=== PATIENT | female | born 1965 | race Caucasian/White ===

== ENCOUNTER 2022-12-13 14:05 | Observation (INO) | payer MEDICAID, SELFPAY ==
[2022-12-13] VITALS (14 sets, daily range): BP systolic 78–112; BP diastolic 44–87; PULSE 80–101; RESP 16–27; TEMP 36.6–37; O2SAT 89–96; BMI 31.4
--- NOTE | 2022-12-13 14:14 | ECG_ITS ---
APPROVED REPORT Exam: Resting ECG HR:99 bpm ECG Measurements Heart Rate 99 AXES NJ 127 P 59 QRSd 93 QRS 9 QT 339 T 57 QTc 396 Conclusion SINUS RHYTHM NORMAL ECG UNCONFIRMED REPORT Electronically signed by : Jeremiah Chin MD 12/13/2022 20:17:25
--- NOTE | 2022-12-13 14:42 | CT_ITS ---
PROCEDURE INFORMATION: Exam: CT Thoracic Spine Without Contrast Exam date and time: 12/13/2022 4:06 PM Age: 57 years old Clinical indication: Pain in thoracic spine; Additional info: Syncope, fall, hit head, neck/back pain TECHNIQUE: Imaging protocol: Computed tomography of the thoracic spine without contrast. Radiation optimization: All CT scans at this facility use at least one of these dose optimization techniques: automated exposure control; mA and/or kV adjustment per patient size (includes targeted exams where dose is matched to clinical indication); or iterative reconstruction. REPORTING DATA: Count of CT and Cardiac NM exams in prior 12 months: This patient has received 0 known CTs and 0 known cardiac nuclear medicine studies in the 12 months prior to the current study. COMPARISON: CT CERVICAL SPINE WO CON 12/13/2022 4:04 PM FINDINGS: Bones/joints: Thoracic spondylosis Soft tissues: Unremarkable. Lungs: Incomplete visualization of changes of centrilobular emphysema. IMPRESSION: No evidence of acute osseous injury.
--- NOTE | 2022-12-13 14:42 | CT_ITS ---
PROCEDURE INFORMATION: Exam: CTA Abdomen and Pelvis With Contrast Exam date and time: 12/13/2022 4:21 PM Age: 57 years old Clinical indication: Other: Severe pain; Additional info: Severe pain, black stools TECHNIQUE: Imaging protocol: Computed tomographic angiography of the abdomen and pelvis with contrast. Exam focused on the arteries. 3D rendering (Not supervised by radiologist): MIP and/or 3D reconstructed images were created by the technologist. Radiation optimization: All CT scans at this facility use at least one of these dose optimization techniques: automated exposure control; mA and/or kV adjustment per patient size (includes targeted exams where dose is matched to clinical indication); or iterative reconstruction. Contrast material: ISOVUE 370; Contrast volume: 70 ml; Contrast route: INTRAVENOUS (IV); REPORTING DATA: Count of CT and Cardiac NM exams in prior 12 months: This patient has received 0 known CTs and 0 known cardiac nuclear medicine studies in the 12 months prior to the current study. COMPARISON: CT LUMBAR SPINE WO CON 12/13/2022 4:10 PM FINDINGS: Aorta: No aortic aneurysm. No aortic dissection. Celiac trunk and mesenteric arteries: No occlusion or significant stenosis. Renal arteries: No occlusion or significant stenosis. Right iliac arteries: No occlusion or significant stenosis. Left iliac arteries: No occlusion or significant stenosis. Liver: hepatic steatosis Gallbladder and bile ducts: Cholecystectomy Pancreas: Pancreas unremarkable Spleen: Focal region of increased density most compatible with hemangioma within the spleen. Adrenal glands: Mild prominence of the adrenal glands bilaterally. Findings most compatible with adrenal hyperplasia Kidneys and ureters: Punctate nonobstructing calculus lower pole left kidney. Stomach and bowel: Colonic diverticulosis. No evidence of diverticulitis. Mild gastric wall thickening. Findings may be secondary to incomplete distension versus gastritis. Mild mucosal enhancement involving portions of large and small bowel most compatible with mild changes of enteritis. Clinically correlate. Appendix: No evidence of appendicitis. Intraperitoneal space: Unremarkable. No free air. No significant fluid collection. Lymph nodes: Unremarkable. No enlarged lymph nodes. Urinary bladder: Unremarkable. No mass. Reproductive: Unremarkable as visualized. Bones/joints: No acute fracture. Soft tissues: Unremarkable. IMPRESSION: 1. Mild mucosal enhancement involving portions of large and small bowel most compatible with mild changes of enteritis. Clinically correlate. 2. Please see above report for discussion of nonacute findings.
--- NOTE | 2022-12-13 14:42 | CT_ITS ---
PROCEDURE INFORMATION: Exam: CT Lumbar Spine Without Contrast Exam date and time: 12/13/2022 4:10 PM Age: 57 years old Clinical indication: Low back pain; Additional info: Syncope, fall, hit head, neck/back pain TECHNIQUE: Imaging protocol: Computed tomography of the lumbar spine without contrast. Radiation optimization: All CT scans at this facility use at least one of these dose optimization techniques: automated exposure control; mA and/or kV adjustment per patient size (includes targeted exams where dose is matched to clinical indication); or iterative reconstruction. REPORTING DATA: Count of CT and Cardiac NM exams in prior 12 months: This patient has received 0 known CTs and 0 known cardiac nuclear medicine studies in the 12 months prior to the current study. COMPARISON: None FINDINGS: Bones/joints: No acute fracture. Normal alignment. No significant disc bulge or herniation. No severe spinal canal stenosis. No significant neural foraminal narrowing. Kidneys and ureters: Punctate nonobstructing calculus lower pole left kidney Soft tissues: Unremarkable. IMPRESSION: No evidence of acute osseous injury.
--- NOTE | 2022-12-13 14:42 | CT_ITS ---
PROCEDURE INFORMATION: Exam: CT Cervical Spine Without Contrast Exam date and time: 12/13/2022 4:04 PM Age: 57 years old Clinical indication: Neck pain; Additional info: Syncope, fall, hit head, neck/back pain TECHNIQUE: Imaging protocol: Computed tomography of the cervical spine without contrast. Radiation optimization: All CT scans at this facility use at least one of these dose optimization techniques: automated exposure control; mA and/or kV adjustment per patient size (includes targeted exams where dose is matched to clinical indication); or iterative reconstruction. REPORTING DATA: Count of CT and Cardiac NM exams in prior 12 months: This patient has received 0 known CTs and 0 known cardiac nuclear medicine studies in the 12 months prior to the current study. COMPARISON: CT HEAD/BRAIN WO CON 12/13/2022 4:01 PM FINDINGS: Bones/joints: No acute cervical spine fracture is identified. There is straightening of the normal cervical lordosis. Moderate degenerative changes of the cervical spine are present. There is no severe spinal canal stenosis. Paranasal sinuses: Nodular mucosal thickening is noted in the right maxillary sinus. Lungs: Mild paraseptal emphysema is present in the lung apices. Soft tissues: Unremarkable. IMPRESSION: 1. No acute abnormality. 2. Chronic findings as discussed above.
--- NOTE | 2022-12-13 14:42 | CT_ITS ---
PROCEDURE INFORMATION: Exam: CT Head Without Contrast Exam date and time: 12/13/2022 4:01 PM Age: 57 years old Clinical indication: Pain; Other: Head neck; Additional info: Syncope, fall, hit head, neck/back pain TECHNIQUE: Imaging protocol: Computed tomography of the head without contrast. Radiation optimization: All CT scans at this facility use at least one of these dose optimization techniques: automated exposure control; mA and/or kV adjustment per patient size (includes targeted exams where dose is matched to clinical indication); or iterative reconstruction. REPORTING DATA: Count of CT and Cardiac NM exams in prior 12 months: This patient has received 0 known CTs and 0 known cardiac nuclear medicine studies in the 12 months prior to the current study. COMPARISON: No relevant prior studies available. FINDINGS: Brain: No acute intracranial hemorrhage, cerebral edema, or midline shift. Cerebral ventricles: No hydrocephalus. Paranasal sinuses: A mucous retention cyst is present in the right maxillary sinus. Mastoid air cells: Visualized mastoid air cells are well aerated. Orbital cavities: The visualized orbits appear unremarkable. Bones/joints: No acute fracture. Soft tissues: Unremarkable. IMPRESSION: No acute intracranial abnormality.
[2022-12-13 15:07] LABS: Microscopic, Urine URINE MICROSCOPIC (MICROSCOPIC)
[2022-12-13 15:11] LABS: Chloride 111 mmol/L (98-107); Potassium 4.6 mmoL/L (3.5-5.1); Sodium 135 mmol/L (136-145)
[2022-12-13 15:14] LABS: Alanine Aminotransferase 160 U/L (12-78); Albumin Level 4.1 g/dl (3.5-5.0); Albumin/Globulin Ratio 1.2 (1.1-1.8); Alkaline Phosphatase 103 U/L (38-126); Anion Gap 11.6 mEq/L (5-15); Aspartate Amino Transferase 206 U/L (14-36); Blood Urea Nitrogen 20 mg/dl (7-17); Calcium 8.3 mg/dl (8.4-10.2); Carbon Dioxide 17 mmol/L (22.0-30.0); Creatinine Clearance Estimated 91 mL/min (50-200); Estimated Glomerular Filt Rate 87 ml/min (>60); GFR (African American) 105 ML/MIN (>60); Globulin 3.5 g/dL (1.3-3.2); Glucose 129 mg/dl (74-100); Total Protein,Serum 7.6 g/dl (6.3-8.2)
[2022-12-13 15:14] LABS: Appearance,Urine CLEAR (Clear); Blood, Urine 3+ (Negative); Color,Urine YELLOW (Yellow); Glucose,Urine (UA) Negative (Negative); Ketones,Urine 1+ (Negative); Leukocyte Esterase,Urine Negative (Negative); Nitrate,Urine Negative (Negative); Protein,Urine 2+ (Negative); Specific Gravity, Urine >= 1.030 (1.005-1.030)
[2022-12-13 15:15] LABS: Activated Partial Thrombo Time 30.6 seconds (22.8-30.6); INR 1.03 (0.9-1.1); Prothrombin Time 11.1 seconds (10.1-12.5)
[2022-12-13 15:17] LABS: Basophils % 0.9 % (0.1-2.0); Eosinophils % 0.4 % (0.1-12.0); Hematocrit 52.9 % (37.0-47.0); Lymphocytes % 42.1 % (10-50); Mean Corpuscular HGB Conc 35.5 g/dL (31.8-35.4); Mean Corpuscular Hemoglobin 31.4 pg (27.0-31.2); Mean Corpuscular Volume 88.4 fl (81-99); Mean Platelet Volume 11.6 fl (7.4-10.4); Monocytes # 0.6 K/mm3 (0.1-1.0); Neutrophils # 2.2 K/mm3 (1.8-7.8); Neutrophils % 44.6 % (37.0-80.0); Red Blood Count 5.99 M/mm3 (4.20-5.40); Red Cell Distribution Width 13.5 % (11.5-17.5); White Blood Count 4.9 K/mm3 (4.8-10.8)
--- NOTE | 2022-12-13 15:18 | PC.NURSE ---
Pt unable to provide stool sample at this time
[2022-12-13 15:21] LABS: Bilirubin,Urine 2+ (Negative)
[2022-12-13 15:23] LABS: Platelet Count 17 K/mm3 (142-424)
[2022-12-13 15:32] LABS: Hemoglobin 18.7 g/dL (12.2-16.2)
[2022-12-13 15:33] LABS: Occult Blood,Stool Positive (Negative)
[2022-12-13 15:39] LABS: Bacteria,Urine 1+ /lpf; WBC,Urine Occasional #/hpf (0-3)
--- NOTE | 2022-12-13 15:46 | HMH.EDGENADL ---
Discharge Plan Disposition Chief Complaint: Dizziness Referrals Follow up/Referrals: Brandi Waite APRN [Primary Care Provider] - See instructions Clinical Impressions Clinical Impression: Acute GI bleeding, Thrombocytopenia, Transaminitis, General weakness Discharge ED Provider: Tomasa Mccollum General Adult HPI <Tomasa Mccollum DO - Last Filed: 12/13/22 15:53> General Chief complaint: Dizziness Stated complaint: AO 12/13 fall lower back pain, dizziness Time Seen by Provider: 12/13/22 14:30 Mode of Arrival: Wheelchair Source of Information: Patient Limitations: No Limitations Description of Symptoms (Recalled from ER Triage Doc. by RN): Patient reports dizziness, lower back pain, leg pain and soiling herself since Tuesday. States that she has gotten lightheaded today and fell twice. Patient states that she was seen at [facility] ER for these same symptoms however they are not getting any better. History of Present Illness HPI narrative: This patient is a 57-year-old female who reports extensive smoking history, history of COPD, CAD and history of hypertension and hyperlipidemia presented to the emergency department for evaluation with concern for low back pain, generalized weakness, and uncontrollable diarrhea for the last several days. She states that she also became lightheaded today and passed out twice. She notes that she did hit her head when she passed out. She states she was evaluated at [facility] for back pain and diarrhea, and she was told that she had colitis. She also states that she was told that her platelets were low and she had blood in her urine. She states that she went home, and her symptoms have worsened. She notes that her stools are very dark black. She denies any fevers, chills, chest pain, shortness of breath, vision changes, numbness, tingling, saddle anesthesia, unilateral weakness, or other concerns. She notes that her last endoscopy was in 2017 and denies any history of liver issues, peptic ulcers, or other concerns. She denies any other recent illnesses. Related Data Allergies Allergy/AdvReac Type Severity Reaction Status Date / Time codeine Allergy Verified 12/13/22 14:34 Penicillins Allergy Verified 12/13/22 14:34 PFSH <Tomasa Mccollum DO - Last Filed: 12/13/22 15:53> [facility] Disclaimer: The information contained in this section may have been updated after the patient was seen, as this information can be updated by other users. Social History (Updated 12/13/22 @ 15:53 by Tomasa Mccollum DO) Smoking Status: Current every day smoker alcohol intake: never current occupational status: employed Travel in the last 8 weeks: None <Tomasa Mccollum DO - Last Filed: 12/13/22 15:53> ROS Obtained: Yes All systems reviewed & no additional complaints except as documented Physical Exam <Tomasa Mccollum DO - Last Filed: 12/13/22 15:53> General General appearance: alert and in no apparent distress Head Head exam: atraumatic and normocephalic Eye Eye exam: Present normal appearance, PERRL and EOMI ENT ENT exam: Present normal exam, normal oropharynx, mucous membranes moist and normal external ear exam Neck Neck exam: Present normal inspection, full ROM and trachea midline; Absent tenderness Chest Chest inspection: Present normal inspection and symmetric chest wall rise; Absent tenderness Respiratory Respiratory exam: Present normal lung sounds bilaterally; Absent respiratory distress, wheezes, stridor or accessory muscle use Cardiovascular Cardiovascular exam: Present regular rate and normal rhythm Abdominal Exam Abdominal exam: Present soft, tenderness (Generalized, mild) and normal bowel sounds; Absent distention, guarding, rebound or rigidity Extremities Exam Extremities exam: Present normal inspection, full ROM and normal capillary refill; Absent tenderness or edema Back Exam Back exam: Present normal inspection and full ROM; Absent tenderness Neurological Exam Neurolog
[2022-12-13 15:51] LABS: Creatine Kinase 416 U/L (30-135)
--- NOTE | 2022-12-13 16:23 | CT_ITS ---
PROCEDURE INFORMATION: Exam: CTA Chest With Contrast Exam date and time: 12/13/2022 4:21 PM Age: 57 years old Clinical indication: Other: Syncope; Additional info: Syncope, multiple falls TECHNIQUE: Imaging protocol: Computed tomographic angiography of the chest with contrast. Exam focused on the arteries. 3D rendering (Not supervised by radiologist): MIP and/or 3D reconstructed images were created by the technologist. Radiation optimization: All CT scans at this facility use at least one of these dose optimization techniques: automated exposure control; mA and/or kV adjustment per patient size (includes targeted exams where dose is matched to clinical indication); or iterative reconstruction. Contrast material: ISOVUE 370; Contrast volume: 70 ml; Contrast route: INTRAVENOUS (IV); REPORTING DATA: Count of CT and Cardiac NM exams in prior 12 months: This patient has received 0 known CTs and 0 known cardiac nuclear medicine studies in the 12 months prior to the current study. COMPARISON: CT THORACIC SPINE WO CON 12/13/2022 4:06 PM FINDINGS: Pulmonary arteries: There is suboptimal opacification of pulmonary arteries due to contrast bolus timing. Aorta: Unremarkable. No aortic aneurysm. No aortic dissection. Lungs: Bibasilar atelectasis versus parenchymal scarring. Centrilobular emphysema. Bilateral ground-glass regions of opacification. Findings nonspecific and may reflect interstitial lung disease. Pleural spaces: Unremarkable. No pneumothorax. No pleural effusion. Heart: Unremarkable. No cardiomegaly. No pericardial effusion. Coronary arteries: The trace coronary artery calcification Lymph nodes: The Nonspecific mediastinal lymph nodes Bones/joints: Unremarkable. No acute fracture. Soft tissues: Unremarkable. IMPRESSION: 1. No large or central pulmonary embolus. Evaluation of the peripheral pulmonary arteries is limited. 2. Centrilobular emphysema. Bilateral ground-glass regions of opacification. Findings may reflect changes of interstitial lung disease. Clinically correlate. COMMENTS: In the absence of a history or active diagnosis of lung cancer, it is recommended that this patient with emphysema be evaluated for enrollment in a low dose CT lung cancer screening program.
--- NOTE | 2022-12-13 18:40 | PC.NURSE ---
Report called to DAVE Martinez on Med Surg.
[2022-12-13 19:48] LABS: Activated Partial Thrombo Time 31.5 seconds (22.8-30.6); INR 1.01 (0.9-1.1); Prothrombin Time 10.9 seconds (10.1-12.5)
[2022-12-13 19:52] LABS: Lactate Dehydrogenase 361 U/L (313-618)
--- NOTE | 2022-12-13 20:06 | PC.NURSE ---
I called and spoke with Imelda on med surg, asking when someone would be available to come get the pt. Imelda stated she would have someone come down.
--- NOTE | 2022-12-13 20:16 | PC.NURSE ---
Patient arrived to floor via wheelchair at 20:16.
--- NOTE | 2022-12-13 20:47 | EXP.HP ---
History of Present Illness *Admission Date: 12/13/22 *Reason for visit:: thrombocytopenia *History of present illness: 57-year-old female presented to the ED for c/o lower back pain, generalized weakness, and uncontrollable diarrhea. PMHX of tobacco abuse and HTN. She reported to the ED that she became lightheaded today and passed out twice and denied LOC. Upon admission assessment the pt states she fell while going to the bathroom, struck her chin, and had LOC with unknown time. 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 She also states that she was told that her platelets were low and she had blood in her urine. She states that she went home, and her symptoms have worsened. She notes that her stools are very dark black. The ED work up reviewed by me reveals a platelet count of 17, elevated liver enzymes of AST of 206 and ALT 160. CTA of abd, head, chest, thoracic spine and lumbar spine reviewed by me and reveals enteritis, centrilobular emphysema, and no other abnormalities. The ED physician discussed the case with Dr. Corrales with heme-onc and Dr. Reaves with the hospitalist. I admitted the pt to the hospitalist service on the medical surgical floor. She is going to be receiving 2 units of platelets. We will trend platelets for a goal above 50. I placed a consult for heme-onc and the pt will observed for any excessive bleeding. [facility] Disclaimer: The information contained in this section may have been updated after the patient was seen, as this information can be updated by other users. Medical History (Updated 12/14/22 @ 05:30 by Radha Brown RN) Hypertension Surgical History (Updated 12/14/22 @ 05:31 by Radha Brown RN) H/O tubal ligation Hx of cholecystectomy Social History (Updated 12/13/22 @ 15:53 by Tomsaa Mccollum DO) Smoking Status: Current every day smoker alcohol intake: never current occupational status: employed Travel in the last 8 weeks: None Review of Systems *Cardiovascular Cardiovascular: Reports system reviewed and no additional complaints, except as documented *Respiratory Respiratory: Reports system reviewed and no additional complaints, except as documented *Gastrointestinal Gastrointestinal: Reports melena *Genitourinary Genitourinary: Reports system reviewed and no additional complaints, except as documented *Musculoskeletal Musculoskeletal: Reports back pain *Neurologic Neurologic: Reports system reviewed and no additional complaints, except as documented Meds Home Medications and Allergies Home Medications Medication Instructions Recorded Confirmed Type estradiol 1 mg tablet 1 mg PO DAILY has not started 12/14/22 12/14/22 History taking yet lisinopril 10 1 tab PO DAILY 1012.5MG 12/14/22 12/14/22 History mg-hydrochlorothiazide 12.5 mg tablet progesterone micronized 100 mg 100 mg PO DAILY has not started 12/14/22 12/14/22 History capsule taking yet New Prescriptions to Start Prescriptions: Allergies Allergy/AdvReac Type Severity Reaction Status Date / Time codeine Allergy Verified 12/13/22 14:34 Penicillins Allergy Verified 12/13/22 14:34 Exam Data for Last 24 hours Vital signs and Labs for Last 24 Hours: Temp Pulse Resp BP Pulse Ox O2 Del Method 98.3 F 81 22 105/74 L 93 L Room Air 12/13/22 20:21 12/13/22 20:21 12/13/22 20:21 12/13/22 20:21 12/13/22 16:40 12/13/22 20:21 Laboratory Results - last 24 hr 12/13/22 14:22: WBC 4.9, RBC 5.99 H, Hgb 18.7 H, Hct 52.9 H, MCV 88.4, MCH 31.4 H, MCHC 35.5 H, RDW 13.5, Plt Count 17 L*, MPV 11.6 H, Neut % (Auto) 44.6, Lymph % (Auto) 42.1, Mills % (Auto) 12.0 H, Eos % (Auto) 0.4, Baso % (Auto) 0.9, Neut # (Auto) 2.2, Lymph # (Auto) 2.0, Mills # (Auto) 0.6, Eos # (Auto) 0.0, Baso # (Auto) 0.0, PT 11.1, INR 1.03, APTT 30.6, Sodium 135 L, Potassium 4.6, Chloride 111 H, Carbon Dioxide 17 L
[2022-12-14] VITALS (12 sets, daily range): BP systolic 69–105; BP diastolic 37–62; PULSE 75–87; RESP 17–20; TEMP 36.6–37.1; O2SAT 90–98; BMI 31.4
[2022-12-14 00:24] LABS: MANUAL DIFFERENTIAL MANUAL DIFFERENTIAL (MANUAL DIFF)
[2022-12-14 00:26] LABS: Basophils % 0.4 % (0.1-2.0); Eosinophils % 0.7 % (0.1-12.0); Hematocrit 42.6 % (37.0-47.0); Lymphocytes # 2.5 K/mm3 (0.7-4.5); Lymphocytes % 46.5 % (10-50); Mean Corpuscular HGB Conc 34.8 g/dL (31.8-35.4); Mean Corpuscular Hemoglobin 30.8 pg (27.0-31.2); Mean Corpuscular Volume 88.4 fl (81-99); Mean Platelet Volume 8.8 fl (7.4-10.4); Monocytes # 0.4 K/mm3 (0.1-1.0); Monocytes % 8.1 % (1.7-9.3); Neutrophils # 2.4 K/mm3 (1.8-7.8); Neutrophils % 44.3 % (37.0-80.0); Platelet Count 77 K/mm3 (142-424); Red Blood Count 4.81 M/mm3 (4.20-5.40); Red Cell Distribution Width 13.6 % (11.5-17.5); White Blood Count 5.4 K/mm3 (4.8-10.8)
[2022-12-14 00:43] LABS: Hemoglobin 14.9 g/dL (12.2-16.2)
[2022-12-14 02:59] LABS: Lymphocytes % 44 % (10-50); Monocytes % 3 % (2-9); Neutrophils % 53 % (42-76); Total Cells Counted 100
[2022-12-14 03:00] LABS: Acanthocytes 1+; Platelet Estimate Moderate Decrease
--- NOTE | 2022-12-14 05:12 | PC.NURSE ---
pt received 2 units of platelets. cali well. pt bp low 69/43-85/52. production control pegboard clerk made aware. new order given for lr 250ml/hr for 1 liter. rechecked bp 91/57. awaiting stool panel. pt reports dizzy spells when ambulating. high fall risk interventions in place
[2022-12-14 06:25] LABS: Chloride 112 mmol/L (98-107); Potassium 3.4 mmoL/L (3.5-5.1); Sodium 138 mmol/L (136-145)
[2022-12-14 06:27] LABS: Alanine Aminotransferase 100 U/L (12-78); Aspartate Amino Transferase 144 U/L (14-36); Blood Urea Nitrogen 21 mg/dl (7-17); Creatinine Clearance Estimated 106 mL/min (50-200); Estimated Glomerular Filt Rate 104 ml/min (>60); GFR (African American) 126 ML/MIN (>60)
[2022-12-14 06:28] LABS: Albumin Level 3.2 g/dl (3.5-5.0); Albumin/Globulin Ratio 1.2 (1.1-1.8); Alkaline Phosphatase 80 U/L (38-126); Anion Gap 8.4 mEq/L (5-15); Bilirubin,Total 0.7 mg/dl (0.2-1.3); Calcium 7.9 mg/dl (8.4-10.2); Carbon Dioxide 21 mmol/L (22.0-30.0); Globulin 2.7 g/dL (1.3-3.2); Glucose 61 mg/dl (74-100); Magnesium 1.7 mg/dl (1.6-2.3); Total Protein,Serum 5.9 g/dl (6.3-8.2)
[2022-12-14 06:32] LABS: Basophils % 0.4 % (0.1-2.0); Eosinophils % 0.4 % (0.1-12.0); Hematocrit 42.1 % (37.0-47.0); Hemoglobin 14.8 g/dL (12.2-16.2); Lymphocytes # 2.9 K/mm3 (0.7-4.5); Lymphocytes % 42.3 % (10-50); Mean Corpuscular HGB Conc 35.1 g/dL (31.8-35.4); Mean Corpuscular Hemoglobin 30.5 pg (27.0-31.2); Monocytes # 0.6 K/mm3 (0.1-1.0); Monocytes % 8.6 % (1.7-9.3); Neutrophils # 3.3 K/mm3 (1.8-7.8); Neutrophils % 48.2 % (37.0-80.0); Platelet Count 82 K/mm3 (142-424); Red Blood Count 4.84 M/mm3 (4.20-5.40); Red Cell Distribution Width 13.7 % (11.5-17.5); White Blood Count 6.9 K/mm3 (4.8-10.8)
--- NOTE | 2022-12-14 07:53 | HMH.PHAINT1 ---
Pharmacy Intervention Comments: clarified home medication list using list from outpatient pharmacy and pt interview
--- NOTE | 2022-12-14 16:39 | PC.NURSE ---
PT IS SITTING UP IN THE CHAIR. ALERT AND ORIENTED X4. PT HAS BEEN SOMEWHAT ANXIOUS THIS SHIFT. PT STATES SHE FEELS LIKE NOBODY IS TELLING HER WHAT IS GOING ON AND HAS REQUESTED TO TALK TO THE HOSPITALIST. PT STATES I JUST HAVE SOME QUESTIONS THAT I WOULD LIKE TO ASK THE DOCTOR . NOTIFIED DR. RYAN AND HE STATED HE WOULD COME BACK TO TALK TO PT. PT IS EATING AND DRINKING FAIR. AMBULATES TO THE BATHROOM. PT STATES HER ABDOMEN HURTS AFTER SHE HAS A BOWEL MOVEMENT. LUNG SOUNDS DIMINISHED. ABDOMEN SOFT WITH HYPOACTIVE BOWEL SOUNDS. WILL CONTINUE TO MONITOR.
--- NOTE | 2022-12-14 17:43 | EXP.PN ---
Subjective *Date: 12/14/22 *Time: 17:43 Interval history: Patient was seen and evaluated at the bedside. denies chest pain, shortness of breath, nausea, vomiting, abdominal pain. Patient does not have any complaints at this time. feels better overall Exam Data for Last 24 hours Vital signs and Labs for Last 24 Hours: Temp Pulse Resp BP Pulse Ox O2 Del Method 98.2 F 80 18 99/62 L 96 Room Air 12/14/22 15:05 12/14/22 15:05 12/14/22 15:05 12/14/22 15:05 12/14/22 15:05 12/14/22 16:48 Laboratory Results - last 24 hr 12/13/22 15:48: Blood Type O Positive, Antibody Screen Negative 12/13/22 16:50: Lactate 1.0 12/13/22 19:05: PT 10.9, INR 1.01, APTT 31.5 H, Lactate Dehydrogenase 361 12/14/22 00:20: WBC 5.4, RBC 4.81, Hgb 14.9 D, Hct 42.6, MCV 88.4, MCH 30.8, MCHC 34.8, RDW 13.6, Plt Count 77 L D, MPV 8.8, Neut % (Auto) 44.3, Lymph % (Auto) 46.5, Millard % (Auto) 8.1, Eos % (Auto) 0.7, Baso % (Auto) 0.4, Neut # (Auto) 2.4, Lymph # (Auto) 2.5, Millard # (Auto) 0.4, Eos # (Auto) 0.0, Baso # (Auto) 0.0, Total Counted 100, Neutrophils % (Manual) 53, Lymphocytes % (Manual) 44, Monocytes % (Manual) 3, Platelet Estimate Moderate decrease, RBC Morphology Not Reportable, Acanthocytes (Spur) 1+ 12/14/22 05:12: WBC 6.9 D, RBC 4.84, Hgb 14.8, Hct 42.1, MCV 87.0, MCH 30.5, MCHC 35.1, RDW 13.7, Plt Count 82 L, MPV 8.0, Neut % (Auto) 48.2, Lymph % (Auto) 42.3, Millard % (Auto) 8.6, Eos % (Auto) 0.4, Baso % (Auto) 0.4, Neut # (Auto) 3.3, Lymph # (Auto) 2.9, Millard # (Auto) 0.6, Eos # (Auto) 0.0, Baso # (Auto) 0.0, Sodium 138, Potassium 3.4 L D, Chloride 112 H, Carbon Dioxide 21 L, Anion Gap 8.4, BUN 21 H, Creatinine 0.60, Estimated Creat Clear 106, Estimated GFR 104, Est GFR ( Amer) 126, Glucose 61 L D, Calcium 7.9 L, Magnesium 1.7, Total Bilirubin 0.7, AST 144 H D, ALT 100 H D, Alkaline Phosphatase 80, Total Protein 5.9 L, Albumin 3.2 L D, Globulin 2.7, Albumin/Globulin Ratio 1.2 I & O for Last 24 hours: Intake & Output 12/11/22 12/12/22 12/13/22 12/14/22 23:59 23:59 23:59 23:59 Intake Total 268 / 268 940 / 940 Output Total 0 / 0 0 / 0 Balance 268 / 268 940 / 940 Weight 63.503 kg 63.503 kg Constitutional Constitutional: no acute distress *Routine HEENT Exam Head: Present normocephalic Eye: Present EOMI and PERRL ENT: Present mucous membranes moist *Routine Neck Exam Neck: Present supple; Absent lymphadenopathy *Routine Respiratory Exam Respiratory: Present CTA bilaterally *Routine Cardiovascular Exam Cardiovascular: Present RRR *Routine Abdominal Exam Abdominal: Present soft and normoactive bowel sounds; Absent tenderness *Routine Extremities Exam Extremities: Absent cyanosis, clubbing or edema *Routine Skin Exam Skin: Present warm; Absent rash *Routine Neurological Exam Neurological: Present alert and oriented X3 Assessment and Plan *Assessment and plan (1) Acute GI bleeding: Status: Acute Category: Medical Code(s): K92.2 - Gastrointestinal hemorrhage, unspecified (2) Thrombocytopenia: Status: Acute Category: Medical Code(s): D69.6 - Thrombocytopenia, unspecified (3) Transaminitis: Status: Acute Category: Medical Code(s): R74.01 - Elevation of levels of liver transaminase levels (4) General weakness: Status: Acute Category: Medical Code(s): R53.1 - Weakness (5) Tobacco abuse: Status: Acute Category: Medical Code(s): Z72.0 - Tobacco use (6) HTN (hypertension): Status: Acute Category: Medical Code(s): I10 - Essential (primary) hypertension (7) Back pain: Status: Acute Category: Medical Code(s): M54.9 - Dorsalgia, unspecified Plan Patient is a 57-year-old female who presented to hospital due to lower back pain generalized weakness diarrhea she was also noted to have blood per rectum. Assessment GI bleed Thrombocytopenia Transaminitis Generalized weakness Hypertensio
[2022-12-15 04:00] VITALS: BMI 31.4
--- NOTE | 2022-12-15 04:02 | PC.NURSE ---
Pt is alert and oriented x4, Pt has slept well this shift. Pt has complained of pain once this shift and pain was relieved with tylenol. Pt IV dressing was changed per pt request. Pt denies further pain and needs at this time.
[2022-12-15 07:24] VITALS: BP 113/69; PULSE 74; RESP 18; TEMP 36.7; O2SAT 97
[2022-12-15 09:38] LABS: Basophils % 0.7 % (0.1-2.0); Eosinophils % 0.8 % (0.1-12.0); Hemoglobin 14.5 g/dL (12.2-16.2); Lymphocytes # 2.5 K/mm3 (0.7-4.5); Lymphocytes % 60.5 % (10-50); Mean Corpuscular HGB Conc 35.4 g/dL (31.8-35.4); Mean Corpuscular Volume 87.6 fl (81-99); Mean Platelet Volume 8.1 fl (7.4-10.4); Monocytes # 0.3 K/mm3 (0.1-1.0); Monocytes % 8.1 % (1.7-9.3); Neutrophils # 1.3 K/mm3 (1.8-7.8); Neutrophils % 29.9 % (37.0-80.0); Platelet Count 69 K/mm3 (142-424); Red Blood Count 4.68 M/mm3 (4.20-5.40); Red Cell Distribution Width 13.6 % (11.5-17.5); White Blood Count 4.2 K/mm3 (4.8-10.8)
[2022-12-15 09:40] LABS: MANUAL DIFFERENTIAL MANUAL DIFFERENTIAL (MANUAL DIFF)
[2022-12-15 10:32] LABS: Eosinophils % 1 % (0-3); Lymphocytes % 71 % (10-50); Monocytes % 4 % (2-9); Neutrophils % 24 % (42-76); Total Cells Counted 100
[2022-12-15 10:33] LABS: RBC Morphology Normal
[2022-12-15 10:34] LABS: Platelet Estimate Marked Decrease
[2022-12-15 11:04] LABS: Haptoglobin 172 mg/dL (33-346)
[2022-12-15 11:12] LABS: HBsAg Screen Negative (Negative); HCV Ab Non Reactive (Non Reactive); HIV Screen 4th Generation wRfx Non Reactive (Non Reactive); Hep A Ab, IGM Negative (Negative); Hep B Core Ab, IgM Negative (Negative)
--- NOTE | 2022-12-15 11:38 | EXP.DC.SUM ---
General Admission date:: 12/13/22 HPI HPI HPI: 57-year-old female presented to the ED for c/o lower back pain, generalized weakness, and uncontrollable diarrhea. PMHX of tobacco abuse and HTN. She reported to the ED that she became lightheaded today and passed out twice and denied LOC. Upon admission assessment the pt states she fell while going to the bathroom, struck her chin, and had LOC with unknown time. 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 She also states that she was told that her platelets were low and she had blood in her urine. She states that she went home, and her symptoms have worsened. She notes that her stools are very dark black. The ED work up reviewed by me reveals a platelet count of 17, elevated liver enzymes of AST of 206 and ALT 160. CTA of abd, head, chest, thoracic spine and lumbar spine reviewed by me and reveals enteritis, centrilobular emphysema, and no other abnormalities. The ED physician discussed the case with Dr. Corrales with heme-onc and Dr. Reaves with the hospitalist. I admitted the pt to the hospitalist service on the medical surgical floor. She is going to be receiving 2 units of platelets. We will trend platelets for a goal above 50. I placed a consult for heme-onc and the pt will observed for any excessive bleeding. Hospital Course Hospital Course Hospital Course: Oncology hematology was consulted during patient stay, oncology recommended outpatient follow-up, discussed patient case over the phone went over labs, they had no further recommendations other than following up as outpatient, patient was cleared for discharge by oncology. Patient GI bleed After platelet and stabilization and transfusion. Patient denies nausea vomiting abdominal pain chest pain shortness of breath diarrhea constipation. Patient wishes to be discharged. Patient was seen and evaluated at the bedside on the day of discharge. Patient is stable for discharge. Patient wishes to be discharged. All patient questions were answered and patient was given time to ask questions. Patient was discharged in stable condition. Exam Data for Last 24 hours Vital signs and Labs for Last 24 Hours: Temp Pulse Resp BP Pulse Ox O2 Del Method 98.0 F 74 18 113/69 97 Room Air 12/15/22 07:24 12/15/22 07:24 12/15/22 07:24 12/15/22 07:24 12/15/22 07:24 12/15/22 07:24 Laboratory Results - last 24 hr 12/13/22 19:05: Haptoglobin 172, Hepatitis A IgM Ab Negative, Hep Bs Antigen Negative, Hep B Core IgM Ab Negative, Hepatitis C Antibody Non reactive, HIV 1&2 Ag/Ab, 4th Gen Non reactive 12/15/22 09:30: WBC 4.2 L D, RBC 4.68, Hgb 14.5, Hct 41.0, MCV 87.6, MCH 31.0, MCHC 35.4, RDW 13.6, Plt Count 69 L, MPV 8.1, Neut % (Auto) 29.9 L, Lymph % (Auto) 60.5 H, [place] % (Auto) 8.1, Eos % (Auto) 0.8, Baso % (Auto) 0.7, Neut # (Auto) 1.3 L, Lymph # (Auto) 2.5, [place] # (Auto) 0.3, Eos # (Auto) 0.0, Baso # (Auto) 0.0, Total Counted 100, Neutrophils % (Manual) 24 L, Lymphocytes % (Manual) 71 H, Monocytes % (Manual) 4, Eosinophils % (Manual) 1, Platelet Estimate Marked decrease, RBC Morphology Normal I & O for Last 24 hours: Intake & Output 12/12/22 12/13/22 12/14/22 12/15/22 23:59 23:59 23:59 23:59 Intake Total 268 / 268 1180 / 1420 510 / 510 Output Total 0 / 0 0 / 0 0 / 0 Balance 268 / 268 1180 / 1420 510 / 510 Weight 63.503 kg 63.503 kg 63.504 kg Constitutional Constitutional: no acute distress *Routine HEENT Exam Head: Present normocephalic Eye: Present EOMI and PERRL ENT: Present mucous membranes moist *Routine Neck Exam Neck: Present supple; Absent lymphadenopathy *Routine Respiratory Exam Respiratory: Present CTA bilaterally *Routine Cardiovascular Exam Cardiovascular: Present RRR *Routine Abdominal Exam Abdominal: Present soft and normoactive bowel sounds; Absent tenderness *Routine Extremities Exam Extremities: Abs
--- NOTE | 2022-12-15 16:35 | PC.NURSE ---
patient discharged home with family
[2022-12-15 19:28] LABS: Peripheral Smear Review Scanned Result
--- NOTE | 2022-12-17 14:55 | CARE MANAGER ---
Called and spoke with S/O who stated patient is doing well. No concerns voiced at time of call.
== END 2022-12-15 16:38 | disposition home or self-care (01) ==
LOC: ER 14:53 → 2ND 22:01
PROVIDERS: Internal Medicine; Nurse Practitioner Critical Care Medicine; Admitting Provider Internal Medicine Adolescent Medicine; Emergency Provider Emergency Medicine; PCP Nurse Practitioner; Visit Provider Internal Medicine Adolescent Medicine
DX: K92.2 Gastrointestinal hemorrhage, unspecified (principal); D69.6 Thrombocytopenia, unspecified; R74.01 Elevation of levels of liver transaminase levels; R53.1 Weakness; I10 Essential (primary) hypertension; M54.9 Dorsalgia, unspecified; F17.210 Nicotine dependence, cigarettes, uncomplicated; J44.9 Chronic obstructive pulmonary disease, unspecified; I25.10 Atherosclerotic heart disease of native coronary artery without angina pectoris; E78.5 Hyperlipidemia, unspecified
CPT/HCPCS: 36415; 70450; 71275; 72125; 72128; 72131; 74174; 80053; 80074; 81001; 82272; 82550; 83010; 83605; 83615; 83735; 85007; 85014; 85018; 85025; 85048; 85049; 85610; 85730; 86703; 86850; 93005; 99291; G0328; G0378; G0432; P9034; Q9967

== ENCOUNTER 2022-12-17 09:03 | Outpatient (CLI) | payer MEDICAID, SELFPAY ==
[2022-12-17 10:09] LABS: Basophils % 0.8 % (0.1-2.0); Eosinophils # 0.1 K/mm3 (0.0-0.4); Eosinophils % 1.8 % (0.1-12.0); Hematocrit 43.8 % (37.0-47.0); Hemoglobin 15.6 g/dL (12.2-16.2); Lymphocytes # 1.8 K/mm3 (0.7-4.5); Lymphocytes % 38.3 % (10-50); Mean Corpuscular HGB Conc 35.6 g/dL (31.8-35.4); Mean Corpuscular Hemoglobin 31.2 pg (27.0-31.2); Mean Corpuscular Volume 87.6 fl (81-99); Mean Platelet Volume 8.9 fl (7.4-10.4); Monocytes # 0.3 K/mm3 (0.1-1.0); Monocytes % 6.5 % (1.7-9.3); Neutrophils # 2.5 K/mm3 (1.8-7.8); Neutrophils % 52.6 % (37.0-80.0); Platelet Count 105 K/mm3 (142-424); Red Blood Count 4.99 M/mm3 (4.20-5.40); Red Cell Distribution Width 13.6 % (11.5-17.5); White Blood Count 4.7 K/mm3 (4.8-10.8)
[2022-12-17 10:37] VITALS: BMI 32.1
[2022-12-17 11:00] LABS: Chloride 110 mmol/L (98-107); Potassium 3.6 mmoL/L (3.5-5.1); Sodium 140 mmol/L (136-145)
--- NOTE | 2022-12-17 11:00 | PC.NURSE ---
1040- cmp, b12, folate drawn per MD order via butterfly needle in left hand. needle removed and coban applied. pt tolerated well.
[2022-12-17 11:03] LABS: Alanine Aminotransferase 92 U/L (12-78); Albumin Level 3.9 g/dl (3.5-5.0); Albumin/Globulin Ratio 1.3 (1.1-1.8); Alkaline Phosphatase 94 U/L (38-126); Anion Gap 10.6 mEq/L (5-15); Aspartate Amino Transferase 94 U/L (14-36); Bilirubin,Total 0.6 mg/dl (0.2-1.3); Blood Urea Nitrogen 10 mg/dl (7-17); Calcium 8.9 mg/dl (8.4-10.2); Carbon Dioxide 23 mmol/L (22.0-30.0); Creatinine Clearance Estimated 126 mL/min (50-200); Estimated Glomerular Filt Rate 128 ml/min (>60); GFR (African American) 155 ML/MIN (>60); Glucose 141 mg/dl (74-100); Total Protein,Serum 6.9 g/dl (6.3-8.2)
[2022-12-17 12:24] LABS: Vitamin B12 961 pg/mL (239-931)
[2022-12-17 12:25] LABS: Folate 7.43 ng/mL
== END 2022-12-17 10:50 | disposition home or self-care (01) ==
PROVIDERS: Internal Medicine Medical Oncology; PCP Nurse Practitioner; Visit Provider Internal Medicine
DX: D69.6 Thrombocytopenia, unspecified (principal)
CPT/HCPCS: 36415; 80053; 82607; 82746; 85025

== ENCOUNTER → 2022-12-30 23:35 | Outpatient (CLI) | payer MEDICAID, SELFPAY ==
[2022-12-30 17:38] LABS: Basophils # 0.1 K/mm3 (0-0.2); Basophils % 0.9 % (0.1-2.0); Eosinophils # 0.1 K/mm3 (0.0-0.4); Eosinophils % 1.8 % (0.1-12.0); Lymphocytes % 37.6 % (10-50); Mean Corpuscular Hemoglobin 31.3 pg (27.0-31.2); Mean Corpuscular Volume 91.8 fl (81-99); Mean Platelet Volume 9.2 fl (7.4-10.4); Monocytes # 0.6 K/mm3 (0.1-1.0); Monocytes % 7.9 % (1.7-9.3); Neutrophils # 4.2 K/mm3 (1.8-7.8); Neutrophils % 51.8 % (37.0-80.0); Platelet Count 158 K/mm3 (142-424); Red Blood Count 5.12 M/mm3 (4.20-5.40); Red Cell Distribution Width 13.6 % (11.5-17.5)
[2022-12-30 18:27] LABS: Anion Gap 12.9 mEq/L (5-15); Blood Urea Nitrogen 16 mg/dl (7-17); Calcium 9.1 mg/dl (8.4-10.2); Carbon Dioxide 24 mmol/L (22.0-30.0); Chloride 106 mmol/L (98-107); Estimated Glomerular Filt Rate 104 ml/min (>60); GFR (African American) 126 ML/MIN (>60); Glucose 92 mg/dl (74-100); Potassium 3.9 mmoL/L (3.5-5.1); Sodium 139 mmol/L (136-145)
[2022-12-30 18:57] LABS: Thyroid Stimulating Hormone 1.61 uIU/mL (0.465-4.68)
[2022-12-30 20:07] LABS: Alanine Aminotransferase 49 U/L (12-78); Aspartate Amino Transferase 53 U/L (14-36); Bilirubin,Total 1.3 mg/dl (0.2-1.3)
[2022-12-30 20:08] LABS: Albumin Level 4.2 g/dl (3.5-5.0); Albumin/Globulin Ratio 1.4 (1.1-1.8); Globulin 2.9 g/dL (1.3-3.2); Total Protein,Serum 7.1 g/dl (6.3-8.2)
[2022-12-30 21:43] LABS: Alkaline Phosphatase 104 U/L (38-126)
== END ==
PROVIDERS: Family Medicine; PCP Nurse Practitioner Family; Visit Provider Nurse Practitioner Family
DX: R74.8 Abnormal levels of other serum enzymes (principal); R53.83 Other fatigue
CPT/HCPCS: 80053; 84443; 85025

== ENCOUNTER 2023-03-17 23:11 | Outpatient (CLI) | payer MEDICAID, SELFPAY ==
[2023-03-17 17:08] LABS: Basophils # 0.1 K/mm3 (0-0.2); Basophils % 1.2 % (0.1-2.0); Eosinophils # 0.2 K/mm3 (0.0-0.4); Eosinophils % 2.4 % (0.1-12.0); Hematocrit 50.4 % (37.0-47.0); Lymphocytes # 2.4 K/mm3 (0.7-4.5); Lymphocytes % 27.9 % (10-50); Mean Corpuscular HGB Conc 33.7 g/dL (31.8-35.4); Mean Corpuscular Hemoglobin 30.7 pg (27.0-31.2); Mean Corpuscular Volume 91.2 fl (81-99); Mean Platelet Volume 8.7 fl (7.4-10.4); Monocytes # 0.6 K/mm3 (0.1-1.0); Monocytes % 7.3 % (1.7-9.3); Neutrophils # 5.3 K/mm3 (1.8-7.8); Neutrophils % 61.3 % (37.0-80.0); Platelet Count 179 K/mm3 (142-424); Red Blood Count 5.53 M/mm3 (4.20-5.40); Red Cell Distribution Width 13.6 % (11.5-17.5); White Blood Count 8.7 K/mm3 (4.8-10.8)
[2023-03-17 17:37] LABS: Alanine Aminotransferase 36 U/L (12-78); Albumin Level 3.9 g/dl (3.5-5.0); Albumin/Globulin Ratio 1.4 (1.1-1.8); Alkaline Phosphatase 88 U/L (38-126); Anion Gap 9.2 mEq/L (5-15); Aspartate Amino Transferase 45 U/L (14-36); Bilirubin,Total 1.3 mg/dl (0.2-1.3); Blood Urea Nitrogen 17 mg/dl (7-17); Calcium 9.4 mg/dl (8.4-10.2); Carbon Dioxide 26 mmol/L (22.0-30.0); Chloride 108 mmol/L (98-107); Estimated Glomerular Filt Rate 104 ml/min (>60); GFR (African American) 126 ML/MIN (>60); Globulin 2.7 g/dL (1.3-3.2); Glucose 98 mg/dl (74-100); Potassium 4.2 mmoL/L (3.5-5.1); Sodium 139 mmol/L (136-145); Total Protein,Serum 6.6 g/dl (6.3-8.2)
== END 2023-03-17 23:59 ==
LOC: LAB.DROPOF 23:11
PROVIDERS: PCP Nurse Practitioner Family; Visit Provider Nurse Practitioner Family
DX: D69.6 Thrombocytopenia, unspecified (principal)
CPT/HCPCS: 80053; 85025

== ENCOUNTER 2024-03-13 09:43 | Outpatient (CLI) | payer MEDICAID, SELFPAY ==
[2024-03-13 16:19] LABS: Basophils # 0.1 K/mm3 (0-0.2); Basophils % 0.9 % (0.1-2.0); Eosinophils # 0.2 K/mm3 (0.0-0.4); Eosinophils % 2.1 % (0.1-12.0); Hematocrit 51.4 % (37.0-47.0); Hemoglobin 16.8 g/dL (12.2-16.2); Lymphocytes # 3.3 K/mm3 (0.7-4.5); Lymphocytes % 33.3 % (10-50); Mean Corpuscular HGB Conc 32.7 g/dL (31.8-35.4); Mean Corpuscular Hemoglobin 29.9 pg (27.0-31.2); Mean Corpuscular Volume 91.6 fl (81-99); Mean Platelet Volume 9.8 fl (7.4-10.4); Monocytes % 10.1 % (1.7-9.3); Neutrophils # 5.3 K/mm3 (1.8-7.8); Neutrophils % 53.3 % (37.0-80.0); Platelet Count 180 K/mm3 (142-424); Red Blood Count 5.61 M/mm3 (4.20-5.40); Red Cell Distribution Width 13.9 % (11.5-17.5); White Blood Count 9.9 K/mm3 (4.8-10.8)
[2024-03-13 16:52] LABS: Alanine Aminotransferase 55 U/L (12-78); Albumin Level 3.9 g/dl (3.5-5.0); Albumin/Globulin Ratio 1.6 (1.1-1.8); Alkaline Phosphatase 93 U/L (38-126); Anion Gap 15.6 mEq/L (5-15); Aspartate Amino Transferase 57 U/L (14-36); Bilirubin,Total 1.2 mg/dl (0.2-1.3); Blood Urea Nitrogen 15 mg/dl (7-17); Calcium 8.8 mg/dl (8.4-10.2); Carbon Dioxide 26 mmol/L (22.0-30.0); Chloride 104 mmol/L (98-107); Chol/HDL Ratio 2.3 (1-3.5); Cholesterol 110 mg/dl (140-200); Estimated Glomerular Filt Rate 103 ml/min (>60); GFR (African American) 125 ML/MIN (>60); Globulin 2.5 g/dL (1.3-3.2); Glucose 125 mg/dl (74-100); HDL Cholesterol 48 mg/dl (40-60); Magnesium 1.8 mg/dl (1.6-2.3); Potassium 3.6 mmoL/L (3.5-5.1); Sodium 142 mmol/L (136-145); Total Protein,Serum 6.4 g/dl (6.3-8.2); Triglycerides 51 mg/dl (30-150); VLDL Cholesterol 10 mg/dL (0-40)
[2024-03-13 16:54] LABS: Hemoglobin A1C 7.9 % (4.0-6.0)
[2024-03-13 18:18] LABS: Iron 147 ug/dL (37-170)
[2024-03-13 18:29] LABS: Total Iron Binding Capacity 357 ug/dL (265-497)
[2024-03-13 18:30] LABS: Direct LDL Cholesterol 50.35 mg/dL (100-129)
[2024-03-13 18:31] LABS: Folate 4.88 ng/mL; T4 (Thyroxine) 6.9 ug/dl (5.53-11.0); Thyroid Stimulating Hormone 3.92 uIU/mL (0.465-4.68); Vitamin B12 976 pg/mL (239-931)
== END 2024-03-13 23:59 | disposition home or self-care (01) ==
LOC: LAB.DROPOF 03-14 09:44
PROVIDERS: PCP Nurse Practitioner Family; Visit Provider Nurse Practitioner Family
DX: I10 Essential (primary) hypertension (principal); R53.83 Other fatigue
CPT/HCPCS: 80053; 80061; 82306; 82607; 82746; 83036; 83540; 83550; 83735; 84436; 84443; 85025

== ENCOUNTER 2024-03-23 12:42 | Outpatient (CLI) | payer MEDICAID, SELFPAY ==
--- NOTE | 2024-03-23 12:45 | CA_ITS ---
APPROVED REPORT EXAM: Comprehensive 2D, Doppler, and color-flow Echocardiogram Project Development Engineer: Dana Wolf RVT Ht: 4 ft 7 in Wt: 153lbs BSA: 1.56 BP: 106/68 mmHg Indications: HTN,EDEMA,SMOKER,SOA TDS 2D Dimensions IVSd 1.36 cm F: 0.6-1.0 LVEF (Visual) 62.30 % PWd 1.15 cm F: 0.6 - 1.0 LA Volume 26.40 mL LVDd 3.17 cm F: 3.9 - 5.3 LA Volume Index 16.82 mL/m2 (M/F) 16-34 LVDs 2.14 cm F: 2.2 - 3.5 M-Mode Dimensions LA Diam 3.12 cm (1.9-4.0) TAPSE 1.64 (<1.7) LV Diastology E Decel Time 233 (160-240 msec) E/A Ratio 0.8 Aortic Valve AoV Peak Federico. 149.0 (50-130 cm/s) AO Peak GR. 8.90 mmHg AO Mean GR. 4.70 (<5 mmHg) AO VTI 29.1 (18-25 cm) Mitral Valve MV E Max Federico. 83.0 (40-130 cm/s) MV A Velocity 100.0 (40-130 cm/s) E/A Ratio 0.84 MV PHT 68.0 ms Pulmonary Valve PV Peak Velocity 101.0 (50-150 cm/s) Left Ventricle The left ventricle is normal size. The left ventricular systolic function is normal. The left ventricular ejection fraction is within the normal range. There is increased LV wall thickness. There is normal LV segmental wall motion. The left ventricular diastolic function is normal. LVEF is 60%. Right Ventricle The right ventricle is normal size. The right ventricular systolic function is normal. Atria The left atrium size is normal. The right atrium size is normal. There is no Doppler evidence of interatrial shunt. Aortic Valve The aortic valve opens well. There is no aortic valvular stenosis. No aortic regurgitation is present. Mitral Valve The mitral valve is normal in structure. No evidence of mitral valve stenosis. There is no mitral valve regurgitation noted. Tricuspid Valve Tricuspid valve is grossly normal in structure and function. Trace tricuspid regurgitation. There is insufficient TR jet to estimate RVSP. Pulmonic Valve The pulmonary valve is normal in structure. Trace pulmonic regurgitation. Great Vessels The aortic root is normal in size. IVC is normal in size and collapses >50% with inspiration. Pericardium There is no pericardial effusion. Other Information Study Quality: Fair Conclusion Normal biventricular systolic function. No significant valvular stenosis or regurgitation. Electronically signed by : Kassandra Nobles MD 04/01/2024 00:00:34
== END 2024-03-23 23:59 | disposition home or self-care (01) ==
LOC: RT 12:43
PROVIDERS: PCP Nurse Practitioner Family; Visit Provider Nurse Practitioner Family
DX: I10 Essential (primary) hypertension (principal); R06.02 Shortness of breath; R60.9 Edema, unspecified
CPT/HCPCS: 93306

== ENCOUNTER 2024-07-01 17:44 | Emergency (ER) | payer MEDICAID, SELFPAY ==
[2024-07-01 17:55] VITALS: BP 135/86; PULSE 105; RESP 20; TEMP 37.1; O2SAT 97; BMI 33.5
[2024-07-01 17:59] LABS: Microscopic, Urine URINE MICROSCOPIC (MICROSCOPIC)
[2024-07-01 18:00] VITALS: BP 135/86; PULSE 88; O2SAT 95
--- NOTE | 2024-07-01 18:02 | CT_ITS ---
PROCEDURE INFORMATION: Exam: CT Abdomen And Pelvis With Contrast Exam date and time: 07/01/2024 6:31 PM Age: 59 years old Clinical indication: Abdominal pain; Epigastric TECHNIQUE: Imaging protocol: Computed tomography of the abdomen and pelvis with contrast. Radiation optimization: All CT scans at this facility use at least one of these dose optimization techniques: automated exposure control; mA and/or kV adjustment per patient size (includes targeted exams where dose is matched to clinical indication); or iterative reconstruction. Contrast material: ISOVUE; Contrast volume: 75 ml; Contrast route: IV; COMPARISON: CT ANGIO ABDOMEN PELVIS 12/13/2022 4:21 PM FINDINGS: Liver: Normal. No mass. Gallbladder and biliary ducts: Gallbladder is surgically absent. No significant biliary ductal dilation. Pancreas: Normal. No ductal dilation. Spleen: Normal. No splenomegaly. Adrenal glands: Normal. No mass. Kidneys and ureters: Normal. No hydronephrosis. Stomach and bowel: There is moderate diffuse fold thickening of the stomach and proximal small bowel compatible with gastroenteritis. No evidence of bowel obstruction. Appendix: No evidence of appendicitis. Intraperitoneal space: Unremarkable. No free air. No significant fluid collection. Vasculature: Unremarkable. No abdominal aortic aneurysm. Lymph nodes: Unremarkable. No enlarged lymph nodes. Urinary bladder: Unremarkable as visualized. Reproductive: Unremarkable as visualized. Bones/joints: Moderate degenerative changes of the lumbosacral junction of the spine. No vertebral body compression. No acute fracture. Soft tissues: Unremarkable. IMPRESSION: Moderate findings of gastroenteritis
--- NOTE | 2024-07-01 18:04 | [facility].EDGENADL ---
Discharge Plan Disposition Patient Disposition: Home, Self-Care Condition: Good Prescriptions Prescriptions: New ondansetron 4 mg tablet,disintegrating 4 mg PO Q8H PRN (Reason: nausea and vomiting) 5 Days Qty: 15 0RF No Action albuterol sulfate 90 mcg/actuation HFA aerosol inhaler 2 inh inhalation Q4-6H PRN (Reason: shortness of breath or wheezing) Qty: 6.7 2RF budesonide-formoterol [Symbicort] 80-4.5 mcg/actuation HFA aerosol inhaler 1 inh inhalation BID Qty: 10.2 2RF fluconazole 150 mg tablet 150 mg PO DAILY 5 Days Qty: 5 0RF Rx Instructions: may repeat second dose 72 hrs after first dose if symptoms persist Ozempic 0.25 mg or 0.5 mg (2 mg/3 mL) pen injector 0.25 mg SQ WEEKLY Qty: 3 1RF Rx Instructions: for 4 weeks losartan 50 mg tablet 25 mg PO DAILY Qty: 30 2RF (DME) blood-glucose meter [Blood Glucose Monitoring] Kit See Rx Instructions .ROUTE .MEDSUPPLY Qty: 1 4RF Rx Instructions: 3-4 times per day (DME) Blood Glucose Test Strip See Rx Instructions .ROUTE .MEDSUPPLY Qty: 100 4RF Rx Instructions: check glucose 3-4 times per day (DME) lancets [Accu-Chek Softclix Lancets] Misc See Rx Instructions .ROUTE .MEDSUPPLY Qty: 100 3RF Rx Instructions: Check glucose 3-4 times per day furosemide [Lasix] 20 mg tablet 20 mg PO Q OTHER DAY PRN (Reason: edema) Qty: 15 2RF rosuvastatin 5 mg tablet See Rx Instructions .ROUTE .COMPLEX Qty: 30 1RF Dose Instruction: TAKE 1 TABLET BY MOUTH ONCE DAILY Rx Instructions: TAKE 1 TABLET BY MOUTH ONCE DAILY Referrals Follow up/Referrals: Karly Dodge APRN [Primary Care Provider] - See instructions Clinical Impressions Clinical Impression: Gastroenteritis Instructions Patient Instructions: DI for Acute Abdominal Pain Print Language Print Language: Icelandic Discharge ED Provider: Rodrigo Grijalva General Adult HPI <Tita Luu (ED), AGED OR DISABLED CARE WORKER - Last Filed: 07/01/24 20:56> General Chief complaint: Abdominal Pain Stated complaint: stomache pain, nausea, lower back pain Time Seen by Provider: 07/01/24 17:47 History of Present Illness HPI narrative: 59-year-old female presents to the ED today for complaint of abdominal pain. Patient states that she went to her primary care on Tuesday and was placed on something for yeast infection. She took 2 days of this and got sick. She says she can only take small bites of food and she started having nausea and vomiting phlegm. She states that she also is a new diabetic. She was started on metformin initially had symptoms of vomiting and diarrhea from the metformin. She was taken off of this and placed on Jardiance. She was taken off of the Jardiance because of the yeast infection. She was then placed on a GLP-1 for her diabetes. She does not know which 1. It was not far approved by her insurance yet so she has not actually taken it yet. She has not had a medication for her diabetes since Tuesday but she has been sick. Her last glucose was yesterday and it was 135. She has been very thirsty and has had 2-3 bottles of water today. She says she is vomiting phlegm and having dry heaves. No diarrhea today. Last night she took mag citrate to try to have a bowel movement because she thought her pain was today with constipation. She still is having left upper abdominal pain rating 9 out of 10. Related Data Previous Rx's ?Medication ?Instructions ?Recorded albuterol sulfate 90 mcg/actuation 2 inh inhalation Q4-6H PRN 11/30/23 aerosol inhaler shortness of breath or wheezing #6.7 grams budesonide-formoterol HFA 80 1 inh inhalation BID #10.2 grams 11/30/23 mcg-4.5 mcg/actuation aerosol inhaler (Symbicort) losartan 50 mg tablet 25 mg (1/2 x 50 mg) PO DAILY #30 03/13/24 tabs blood sugar diagnostic (Blood #100 ea 06/14/24 Glucose Test strips) blood-glucose meter (Blood Glucose #1 ea 06/14/24 Monitoring kit) furosemide 20 mg tablet (Lasix) 20 mg PO Q OTHER DAY PRN edema #15 06/14/24 tabs lancets (Accu-Chek Softclix #100 ea 06/14/24 Lancets) rosuvastatin 5 mg tablet See Rx Instructions .Route 06/19/24 .COMPLEX #30 tabs fluconazole 150 mg tablet 150 mg PO DAILY 5 days #5 tabs 06/27/24 semaglutide 0.25 mg or 0.5 mg (2 0.25 mg (0.368 mL) SQ WEEKLY #3 mL 06/27/24 mg/3 mL) subcutaneous pen injector (Ozempic) ondansetron 4 mg disintegrating 4 mg PO Q8H PRN nausea and 07/01/24 tablet vomiting 5 days #15 tabs Allergies Allergy/AdvReac Type Severity Reaction Status Date / Time codeine Allergy Verified 06/27/24 12:48 Penicillins Allergy Verified 06/27/24 12:48 <Rodrigo Grijalva MD - Last Filed: 07/01/24 23:22> General Mode of Arrival: Wheelchair Source of Information: Patient Description of Symptoms (Recalled from ER Triage Doc. by RN): epigastric pain, nausea, for a few days. PFSH <Tita Luu (ED), AGED OR DISABLED CARE WORKER - Last Filed: 07/01/24 20:56> PFSH Medical History Thrombocytopenia Anxiety and depression Hypertension Surgical History History of removal of ovarian cyst H/O tubal ligation Hx of cholecystectomy Family History Brother Diabetes Mother Coronary artery disease Heart attack Other Cancer Heart disease Social History Smoking Status: Current every day smoker alcohol intake: never current occupational status: employed Travel in the last 8 weeks?: None Have you lived/traveled outside [place] in past 30 days?: No Contact w/someone who lives/traveled outside US past 30 days?: No Exposure to someone with infectious disease in past 14 days?: No Do you have a fever (greater than 100.4 F or 38 C)?: No Have you tested positive for COVID-19?: No Exposed to someone with COVID-19 in past 14 days?: No Do you have a sore throat?: No Do you have a cough?: No Do you have any weakness?: No Do you have any diarrhea?: No Are you experiencing any unusual bleeding?: No Do you have any muscle aches/pain?: No Do you have any abdominal pain?: No Are you experiencing loss of taste or smell?: No <Rodrigo Grijalva MD - Last Filed: 07/01/24 23:22> [facility] Disclaimer: The information contained in this section may have been updated after the patient was seen, as this information can be updated by other users. Other Medical History Have you received the Flu Vaccine for this season: No Have you received the Pneumonia Vaccine: Yes <Tita Luu (ED), AGED OR DISABLED CARE WORKER - Last Filed: 07/01/24 20:56> ROS Obtained: Yes Systems reviewed as appropriate & no additional complaints except as documented Constitutional Constitutional: Reports as per HPI Physical Exam <Tita Luu (ED), AGED OR DISABLED CARE WORKER - Last Filed: 07/01/24 20:56> General General appearance: alert and in distress Head Head exam: atraumatic and normocephalic Eye Eye exam: Present normal appearance, PERRL and EOMI ENT ENT exam: Present normal exam, normal oropharynx and mucous membranes moist Neck Neck exam: Present normal inspection, full ROM and trachea midline Respiratory Respiratory exam: Present normal lung sounds bilaterally Cardiovascular Cardiovascular exam: Present regular rate, normal rhythm, normal heart sounds, +S1 and +S2 Abdominal Exam Abdominal exam: Present soft, tenderness, guarding and normal bowel sounds Abdominal tenderness: Present LUQ and moderate Extremities Exam Extremities exam: Present normal inspection, full ROM and normal capillary refill Neurological Exam Neurological exam: Present alert and oriented X3 Skin Skin exam: Present warm, dry and intact Medical Decision Making <Tita Luu (ED), AGED OR DISABLED CARE WORKER - Last Filed: 07/01/24 20:56> Rigo Inquiry Pt receiving controlled substance: No Rigo was queried for this patient: No Vital Signs: 07/01/24 17:55 07/01/24 18:00 07/01/24 19:00 Temperature 98.7 F Temperature Source Oral Pulse Rate 88 96 H Pulse Rate [Right] 105 H Respiratory Rate 20 Blood Pressure 135/86 131/72 Blood Pressure [Right Arm] 135/86 Blood Pressure Mean 97 Blood Pressure Mean [Right Arm] 102 02 Sat by Pulse Oximetry 97 95 96 Oxygen Delivery Method Room Air Room Air 07/01/24 20:13 Temperature 98.0 F Temperature Source Pulse Rate 94 H Pulse Rate [Right] Respiratory Rate 16 Blood Pressure 131/72 Blood Pressure [Right Arm] Blood Pressure Mean Blood Pressure Mean [Right Arm] 02 Sat by Pulse Oximetry Oxygen Delivery Method Room Air Lab Data Lab Results 07/01/24 17:52: Urine Color Yellow, Urine Appearance Clear, Urine pH 6.0, Ur Specific [place] 1.020, Urine Protein 1+ A, Urine Glucose (UA) Negative, Urine Ketones 2+, Urine Blood 3+ A, Urine Nitrate Negative, Urine Bilirubin 1+ A, Urine Urobilinogen 2.0, Ur Leukocyte Esterase 1+ A, Urine RBC 5-10, Urine WBC 10-20, Ur Squamous Epith Cells 5-10, Urine Bacteria 1+ 07/01/24 17:57: WBC 18.0 H, RBC 5.95 H, Hgb 17.9 H, Hct 51.4 H, MCV 86.4, MCH 30.1, MCHC 34.8, RDW 13.3, Plt Count 246, MPV 9.3, Neut % (Auto) 67.6, Lymph % (Auto) 20.2, [place] % (Auto) 10.7 H, Eos % (Auto) 0.6, Baso % (Auto) 0.5, Neut # (Auto) 12.2 H, Lymph # (Auto) 3.6, [place] # (Auto) 1.9 H, Eos # (Auto) 0.1, Baso # (Auto) 0.1, Total Counted 100, Neutrophils % (Manual) 65, Lymphocytes % (Manual) 22, Monocytes % (Manual) 12 H, Eosinophils % (Manual) 1, Platelet Estimate Normal, RBC Morphology Normal, PT 11.4, INR 1.03, APTT 24.0, Sodium 134 L, Potassium 3.8, Chloride 106, Carbon Dioxide 19 L, Anion Gap 12.8, BUN 21 H, Creatinine 0.70, Estimated Creat Clear 98, Estimated GFR 86, Est GFR ( Amer) 104, Glucose 168 H, Lactate 1.1, Calcium 9.3, Magnesium 2.0, Total Bilirubin 1.6 H, AST 59 H, ALT 60, Alkaline Phosphatase 113, Troponin I < 0.01, Total Protein 7.2, Albumin 4.2, Globulin 3.0, Albumin/Globulin Ratio 1.4, Lipase 60, HCV Ab RUY w/Rflx PCR Qn Negative, HIV Ag/Ab Combo Qual Negative 07/01/24 17:57 07/01/24 17:57 Orders (Tests/Meds): ED MEDICATIONS Discontinued Medications Generic Name Dose Route Start Last Admin Trade Name Danielle PRN Reason Stop Dose Admin Famotidine 20 mg 07/01/24 18:02 07/01/24 18:18 Famotidine 20mg/2ml Vial IV 07/01/24 18:03 20 mg ONCE ONE Administration Sodium Chloride 1,000 mls @ 999 mls/hr 07/01/24 18:02 07/01/24 18:18 Sod Chlor 0.9% 1000ml Bag IV 07/01/24 19:02 999 mls/hr .Q1H1M ONE Administration Iopamidol 75 ml 07/01/24 18:32 07/01/24 18:32 Iopamidol-370 (76%);100ml Bottle IV 07/01/24 18:33 75 ml ONCE ONE Administration Morphine Sulfate 4 mg 07/01/24 18:06 07/01/24 18:18 Morphine 4mg/Ml Syringe IV 07/01/24 18:07 4 mg ONCE ONE Administration Ondansetron HCl 4 mg 07/01/24 18:06 07/01/24 18:18 Ondansetron 4mg/2ml Vial IV 07/01/24 18:07 4 mg ONCE ONE Administration Sodium Chloride 8 ml 07/01/24 18:02 Sodium Chloride 0.9% 10ml Vial IV 07/31/24 18:01 NEEDED PRN dilute pepcid Sodium Chloride 10 ml 07/01/24 18:32 07/01/24 18:32 Sodium Chloride 0.9% 10ml Syr (Rad Only) IV 07/01/24 18:33 10 ml ONCE ONE Administration ORDERS Category Date Time Status CT abdomen pelvis w con Stat Cat Scan 07/01/24 18:02 Completed CBC [Complete Blood Count Auto Diff] Stat Lab 07/01/24 17:57 Completed Comprehensive Metabolic Panel Stat Lab 07/01/24 17:57 Completed HIV Combo Stat Lab 07/01/24 17:57 Completed Hepatitis C Ab Qual. W/ RFX Stat Lab 07/01/24 17:57 Completed Lactic Acid Stat Lab 07/01/24 17:57 Completed Lipase Stat Lab 07/01/24 17:57 Completed Magnesium Stat Lab 07/01/24 17:57 Completed PT INR [Prothrombin Time INR] Stat Lab 07/01/24 17:57 Completed PTT [Activated Partial Thrombo Time] Stat Lab 07/01/24 17:57 Completed Trop I [Troponin I] Stat Lab 07/01/24 17:57 Completed UA [Urinalysis and Microscopic] Stat Lab 07/01/24 17:52 Completed Urine Culture Stat Micro 07/01/24 17:52 Received Medical Decision Narrative: Patient is a insert review patient is a 89-year-old female presenting to the emergency department for evaluation of abdominal pain that is in her left upper quadrant. She states that Tuesday she was seen by her primary care for yeast infection but was only able to take a couple days of the medicine due to dry heaves. Patient is hemodynamically stable and nontoxic-appearing upon arrival, afebrile. Differential diagnosis includes pancreatitis, gastroenteritis, among others. Workup will be conducted with hematologic labs, specific imaging including CT scan of the abdomen and pelvis. Initial inventions include crystalloid bolus, analgesics. Initial workup reviewed by me white count was 18 but patient has been vomiting. Other labs are unremarkable and nonactionable at this time. Imaging informally interpreted by me and remarkable for inflammation of the stomach. Please see radiology report for official read. Upon repeat evaluation patient's pain is improved. Patient is safe for discharge home. <Rodrigo Grijalva MD - Last Filed: 07/01/24 23:22> Medical Records Screening: Per USPSTF and CDC recommendations, given the prevalence of disease in our region, it is our hospital?s policy to screen for HIV and viral Hepatitis for all patients aged 18 and over and those with ongoing risk factors. Vital Signs: 07/01/24 17:55 07/01/24 18:00 07/01/24 19:00 Temperature 98.7 F Temperature Source Oral Pulse Rate 88 96 H Pulse Rate [Right] 105 H Respiratory Rate 20 Blood Pressure 135/86 131/72 Blood Pressure [Right Arm] 135/86 Blood Pressure Mean 97 Blood Pressure Mean [Right Arm] 102 02 Sat by Pulse Oximetry 97 95 96 Oxygen Delivery Method Room Air Room Air 07/01/24 20:13 Temperature 98.0 F Temperature Source Pulse Rate 94 H Pulse Rate [Right] Respiratory Rate 16 Blood Pressure 131/72 Blood Pressure [Right Arm] Blood Pressure Mean Blood Pressure Mean [Right Arm] 02 Sat by Pulse Oximetry Oxygen Delivery Method Room Air Lab Data Lab Results 07/01/24 17:52: Urine Color Yellow, Urine Appearance Clear, Urine pH 6.0, Ur Specific [place] 1.020, Urine Protein 1+ A, Urine Glucose (UA) Negative, Urine Ketones 2+, Urine Blood 3+ A, Urine Nitrate Negative, Urine Bilirubin 1+ A, Urine Urobilinogen 2.0, Ur Leukocyte Esterase 1+ A, Urine RBC 5-10, Urine WBC 10-20, Ur Squamous Epith Cells 5-10, Urine Bacteria 1+ 07/01/24 17:57: WBC 18.0 H, RBC 5.95 H, Hgb 17.9 H, Hct 51.4 H, MCV 86.4, MCH 30.1, MCHC 34.8, RDW 13.3, Plt Count 246, MPV 9.3, Neut % (Auto) 67.6, Lymph % (Auto) 20.2, [place] % (Auto) 10.7 H, Eos % (Auto) 0.6, Baso % (Auto) 0.5, Neut # (Auto) 12.2 H, Lymph # (Auto) 3.6, [place] # (Auto) 1.9 H, Eos # (Auto) 0.1, Baso # (Auto) 0.1, Total Counted 100, Neutrophils % (Manual) 65, Lymphocytes % (Manual) 22, Monocytes % (Manual) 12 H, Eosinophils % (Manual) 1, Platelet Estimate Normal, RBC Morphology Normal, PT 11.4, INR 1.03, APTT 24.0, Sodium 134 L, Potassium 3.8, Chloride 106, Carbon Dioxide 19 L, Anion Gap 12.8, BUN 21 H, Creatinine 0.70, Estimated Creat Clear 98, Estimated GFR 86, Est GFR ( Amer) 104, Glucose 168 H, Lactate 1.1, Calcium 9.3, Magnesium 2.0, Total Bilirubin 1.6 H, AST 59 H, ALT 60, Alkaline Phosphatase 113, Troponin I < 0.01, Total Protein 7.2, Albumin 4.2, Globulin 3.0, Albumin/Globulin Ratio 1.4, Lipase 60, HCV Ab RUY w/Rflx PCR Qn Negative, HIV Ag/Ab Combo Qual Negative Orders (Tests/Meds): ED MEDICATIONS Discontinued Medications Generic Name Dose Route Start Last Admin Trade Name Freq PRN Reason Stop Dose Admin Famotidine 20 mg 07/01/24 18:02 07/01/24 18:18 Famotidine 20mg/2ml Vial IV 07/01/24 18:03 20 mg ONCE ONE Administration Sodium Chloride 1,000 mls @ 999 mls/hr 07/01/24 18:02 07/01/24 18:18 Sod Chlor 0.9% 1000ml Bag IV 07/01/24 19:02 999 mls/hr .Q1H1M ONE Administration Iopamidol 75 ml 07/01/24 18:32 07/01/24 18:32 Iopamidol-370 (76%);100ml Bottle IV 07/01/24 18:33 75 ml ONCE ONE Administration Morphine Sulfate 4 mg 07/01/24 18:06 07/01/24 18:18 Morphine 4mg/Ml Syringe IV 07/01/24 18:07 4 mg ONCE ONE Administration Ondansetron HCl 4 mg 07/01/24 18:06 07/01/24 18:18 Ondansetron 4mg/2ml Vial IV 07/01/24 18:07 4 mg ONCE ONE Administration Sodium Chloride 8 ml 07/01/24 18:02 Sodium Chloride 0.9% 10ml Vial IV 07/31/24 18:01 NEEDED PRN dilute pepcid Sodium Chloride 10 ml 07/01/24 18:32 07/01/24 18:32 Sodium Chloride 0.9% 10ml Syr (Rad Only) IV 07/01/24 18:33 10 ml ONCE ONE Administration ORDERS Category Date Time Status CT abdomen pelvis w con Stat Cat Scan 07/01/24 18:02 Completed CBC [Complete Blood Count Auto Diff] Stat Lab 07/01/24 17:57 Completed Comprehensive Metabolic Panel Stat Lab 07/01/24 17:57 Completed HIV Combo Stat Lab 07/01/24 17:57 Completed Hepatitis C Ab Qual. W/ RFX Stat Lab 07/01/24 17:57 Completed Lactic Acid Stat Lab 07/01/24 17:57 Completed Lipase Stat Lab 07/01/24 17:57 Completed Magnesium Stat Lab 07/01/24 17:57 Completed PT INR [Prothrombin Time INR] Stat Lab 07/01/24 17:57 Completed PTT [Activated Partial Thrombo Time] Stat Lab 07/01/24 17:57 Completed Trop I [Troponin I] Stat Lab 07/01/24 17:57 Completed UA [Urinalysis and Microscopic] Stat Lab 07/01/24 17:52 Completed Urine Culture Stat Micro 07/01/24 17:52 Received Medical Decision Narrative: Patient is a insert review patient is a 89-year-old female presenting to the emergency department for evaluation of abdominal pain that is in her left upper quadrant. She states that Tuesday she was seen by her primary care for yeast infection but was only able to take a couple days of the medicine due to dry heaves. Patient is hemodynamically stable and nontoxic-appearing upon arrival, afebrile. Differential diagnosis includes pancreatitis, gastroenteritis, among others. Workup will be conducted with hematologic labs, specific imaging including CT scan of the abdomen and pelvis. Initial inventions include crystalloid bolus, analgesics. Initial workup reviewed by me white count was 18 but patient has been vomiting. Other labs are unremarkable and nonactionable at this time. Imaging informally interpreted by me and remarkable for inflammation of the stomach. Please see radiology report for official read. Upon repeat evaluation patient's pain is improved. Patient is safe for discharge home. I was consulted by the NICOLETTE, and we discussed the complexity of the problems being addressed. I approved the treatment and management plan for this patient's care in the Emergency Department, thus performing a substantive portion of the medical decision making. Rodrigo Grijalva MD Critical Care <Tita Luu (ED), AGED OR DISABLED CARE WORKER - Last Filed: 07/01/24 20:56> Critical Care Time Critical Care Time: No
[2024-07-01 18:06] LABS: Appearance,Urine CLEAR (Clear); Blood, Urine 3+ (Negative); Color,Urine YELLOW (Yellow); Glucose,Urine (UA) Negative (Negative); Ketones,Urine 2+ (Negative); Leukocyte Esterase,Urine 1+ (Negative); Nitrate,Urine Negative (Negative); Protein,Urine 1+ (Negative)
[2024-07-01 18:15] LABS: Basophils # 0.1 K/mm3 (0-0.2); Basophils % 0.5 % (0.1-2.0); Eosinophils # 0.1 Kmm3 (0.0-0.4); Eosinophils % 0.6 % (0.1-12.0); Hematocrit 51.4 % (37.0-47.0); Hemoglobin 17.9 g/dL (12.2-16.2); Immature Granulocytes # 0.07 10^3uL; Immature Granulocytes % 0.4 %; Lymphocytes # 3.6 K/mm3 (0.7-4.5); Lymphocytes % 20.2 % (10-50); Mean Corpuscular HGB Conc 34.8 g/dL (31.8-35.4); Mean Corpuscular Hemoglobin 30.1 pg (27.0-31.2); Mean Corpuscular Volume 86.4 fl (81-99); Mean Platelet Volume 9.3 fl (7.4-10.4); Monocytes # 1.9 K/mm3 (0.1-1.0); Monocytes % 10.7 % (1.7-9.3); Neutrophils # 12.2 K/mm3 (1.8-7.8); Neutrophils % 67.6 % (37.0-80.0); Nucleated Red Blood Cells # 0 10^3/uL; Nucleated Red Blood Cells % 0 %; Platelet Count 246 K/mm3 (142-424); Red Blood Count 5.95 M/mm3 (4.20-5.40); Red Cell Distribution Width 13.3 % (11.5-17.5); Red Cell Distribution Width-SD 41.7 fL
[2024-07-01 18:17] LABS: Bilirubin,Urine 1+ (Negative)
[2024-07-01 18:17] LABS: Albumin Level 4.2 g/dl (3.5-5.0); Chloride 106 mmol/L (98-107); MANUAL DIFFERENTIAL MANUAL DIFFERENTIAL (MANUAL DIFF); Potassium 3.8 mmoL/L (3.5-5.1); Sodium 134 mmol/L (136-145)
[2024-07-01 18:18] LABS: Bacteria,Urine 1+ /lpf
[2024-07-01] MEDS: FAMOTIDINE 20MG/2ML VIAL 20 MG IV (18:18)
[2024-07-01] MEDS: 0.9 % SODIUM CHLORIDE 1000ML 1,000 ML 999 ML IV (18:18)
[2024-07-01] MEDS: MORPHINE 4MG/ML SYRINGE 4 MG IV (18:18)
[2024-07-01] MEDS: ONDANSETRON 4MG/2ML VIAL 4 MG IV (18:18)
[2024-07-01 18:19] LABS: Alanine Aminotransferase 60 U/L (12-78); Aspartate Amino Transferase 59 U/L (14-36); Blood Urea Nitrogen 21 mg/dl (7-17); Creatinine Clearance Estimated 98 mL/min (50-200); Estimated Glomerular Filt Rate 86 ml/min (>60); GFR (African American) 104 ML/MIN (>60)
[2024-07-01 18:20] LABS: Albumin/Globulin Ratio 1.4 (1.1-1.8); Alkaline Phosphatase 113 U/L (38-126); Anion Gap 12.8 mEq/L (5-15); Bilirubin,Total 1.6 mg/dl (0.2-1.3); Calcium 9.3 mg/dl (8.4-10.2); Carbon Dioxide 19 mmol/L (22.0-30.0); Glucose 168 mg/dl (74-100); Lipase 60 U/L (23-300); Total Protein,Serum 7.2 g/dl (6.3-8.2)
[2024-07-01 18:22] LABS: Lactic Acid 1.1 mmol/L (0.7-2.1)
[2024-07-01 18:26] LABS: INR 1.03 (0.9-1.1); Prothrombin Time 11.4 seconds (10.1-12.5)
[2024-07-01] MEDS: SODIUM CHLORIDE 0.9% 10ML SYR (RAD ONLY) 10 ML IV (18:32)
[2024-07-01] MEDS: IOPAMIDOL-370 (76%);100ML BOTTLE 75 ML IV (18:32)
[2024-07-01 18:34] LABS: Troponin I < 0.01 ng/ml (0.00-0.034)
[2024-07-01 18:42] LABS: Eosinophils % 1 % (0-3); Lymphocytes % 22 % (10-50); Monocytes % 12 % (2-9); Neutrophils % 65 % (42-76); Platelet Estimate Normal; RBC Morphology Normal; Total Cells Counted 100
[2024-07-01 19:00] VITALS: BP 131/72; PULSE 96; O2SAT 96
[2024-07-01 19:11] LABS: HIV Combo NEGATIVE (Negative)
[2024-07-01 19:19] LABS: Hepatitis C Ab Qual. W/ RFX NEGATIVE (Negative)
[2024-07-01 20:13] VITALS: BP 131/72; PULSE 94; RESP 16; TEMP 36.7; O2SAT 96
== END 2024-07-01 20:14 | disposition home or self-care (01) ==
PROVIDERS: Nurse Practitioner; Emergency Provider Emergency Medicine; PCP Nurse Practitioner Family
DX: R10.12 Left upper quadrant pain (principal); K52.9 Noninfective gastroenteritis and colitis, unspecified; R11.0 Nausea; Z11.59 Encounter for screening for other viral diseases; Z11.4 Encounter for screening for human immunodeficiency virus [HIV]
CPT/HCPCS: 74177; 80053; 81001; 83605; 83690; 83735; 84484; 85007; 85025; 85027; 85610; 85730; 86803; 87086; 87389; 96361; 96374; 96375; 99285; J2270; J2405; J7030; Q9967

== ENCOUNTER 2024-09-27 08:44 | Outpatient (CLI) | payer MEDICAID, SELFPAY ==
[2024-09-27 16:57] LABS: Hematocrit 49.0 % (37.0-47.0); Hemoglobin 16.1 g/dL (12.2-16.2); Immature Granulocytes % 0.2 %; Mean Corpuscular HGB Conc 32.9 g/dL (31.8-35.4); Mean Corpuscular Hemoglobin 29.1 pg (27.0-31.2); Mean Corpuscular Volume 88.6 fl (81-99); Nucleated Red Blood Cells % 0 %; Platelet Count 131 K/mm3 (142-424); Red Blood Count 5.53 M/mm3 (4.20-5.40); Red Cell Distribution Width-SD 45.3 fL; White Blood Count 9.0 K/mm3 (4.8-10.8)
[2024-09-27 18:11] LABS: Alanine Aminotransferase 30 U/L (12-78); Albumin Level 3.7 g/dl (3.5-5.0); Albumin/Globulin Ratio 1.4 (1.1-1.8); Alkaline Phosphatase 116 U/L (38-126); Anion Gap 8.9 mEq/L (5-15); Aspartate Amino Transferase 44 U/L (14-36); Bilirubin,Total 1.1 mg/dl (0.2-1.3); Blood Urea Nitrogen 14 mg/dl (7-17); Calcium 9.4 mg/dl (8.4-10.2); Carbon Dioxide 27 mmol/L (22.0-30.0); Chloride 110 mmol/L (98-107); Cholesterol 95 mg/dl (140-200); Creatinine,Serum 0.60 mg/dl (0.52-1.04); Estimated Glomerular Filt Rate 103 ml/min (>60); GFR (African American) 125 ML/MIN (>60); Globulin 2.6 g/dL (1.3-3.2); Glucose 83 mg/dl (74-100); HDL Cholesterol 52 mg/dl (40-60); Potassium 4.9 mmoL/L (3.5-5.1); Sodium 141 mmol/L (136-145); Total Protein,Serum 6.3 g/dl (6.3-8.2); Triglycerides 39 mg/dl (30-150)
[2024-09-27 18:41] LABS: Thyroid Stimulating Hormone 2.03 uIU/mL (0.465-4.68)
== END 2024-09-27 23:59 | disposition home or self-care (01) ==
LOC: LAB.DROPOF 10-02 08:45
PROVIDERS: PCP Nurse Practitioner Family; Visit Provider Nurse Practitioner Family
DX: E11.9 Type 2 diabetes mellitus without complications (principal); I10 Essential (primary) hypertension
CPT/HCPCS: 80053; 80061; 84443; 85025